=== PATIENT | female | born 1945 | race Hispanic/Latino ===

== ENCOUNTER 2017-01-02 14:19 | Outpatient (CLI) | payer MEDICARE ==
--- NOTE | 2017-01-02 15:29 | Mammography Report ---
Screening mammogram: Routine views are obtained demonstrating a generally fatty replaced breast pattern. In the inferior anterior left breast there is a sharply circumscribed noncalcified 6 mm nodule in in the lateral projection and may be an eccentric area of fat. The breast pattern is not otherwise remarkable. Patient is unaware of location of prior exams. CAD not captured. Impression: Probably benign left nodule. Recommendation: Repeat left mammogram in 6 months to confirm stability. BI-RADS CATEGORY: 3 = Probably benign ACR BI-RADS MAMMOGRAPHIC CODES: 0 = Needs additional imaging evaluation; 1 = Negative; 2 = Benign; 3 = Probably benign; 4 = Suspicious; 5 = Malignant; 6 = Known biopsy-proven malignancy COMMENT: 1. Dense breast tissue, i.e., adenosis, fibrocystic changes, etc., may obscure an underlying neoplasm. 2. Approximately 10% of cancers are not detected with mammography. 3. A negative mammography report should not delay biopsy if a clinically suspicious mass is present.
== END 2017-01-02 14:20 | disposition home or self-care (01) ==
LOC: MAMMO 14:19
PROVIDERS: ATTEND Internal Medicine
DX: Z12.31 Encounter for screening mammogram for malignant neoplasm of breast (principal)
CPT/HCPCS: 77067; G0202

== ENCOUNTER 2017-09-03 12:47 | Outpatient (CLI) | payer MEDICARE ==
--- NOTE | 2017-09-03 15:37 | Mammography Report ---
LEFT DIGITAL DIAGNOSTIC MAMMOGRAM with CAD: 09/03/17 12:47:00 CLINICAL: Follow-up low-density retroareolar asymmetry.. COMPARISON:01/02/17 FINDINGS: Lateral and spot magnification ML and CC views were performed. A low-density circumscribed asymmetry persists on the CC spot view but is not identified on the other views. Ultrasound of the retroareolar left breast was performed and demonstrated no mass or cystic correlate with the mammographic asymmetry. I suspect that it is a dilated duct which shows effacement on the lateral views. A subareolar 3 mm cyst at 10 o'clock has no mammographic correlate. IMPRESSION: No mammographic evidence of malignancy. BI-RADS CATEGORY: 2 -- Benign RECOMMENDATION: Return to routine mammographic screening. ACR BI-RADS MAMMOGRAPHIC CODES: 0 = Needs additional imaging evaluation; 1 = Negative; 2 = Benign; 3 = Probably benign; 4 = Suspicious; 5 = Malignant; 6 = Known biopsy-proven malignancy COMMENT: 1. Dense breast tissue, i.e., adenosis, fibrocystic changes, etc., may obscure an underlying neoplasm. 2. Approximately 10% of cancers are not detected with mammography. 3. A negative mammography report should not delay biopsy if a clinically suspicious mass is present. COMMENT: Patient follow-up letters are generated by our [employer] application.
--- NOTE | 2017-09-03 15:53 | Ultrasound Report ---
LEFT DIGITAL DIAGNOSTIC MAMMOGRAM with CAD and LEFT BREAST ULTRASOUND: 09/03/17 12:47:00 CLINICAL: Follow-up low-density retroareolar asymmetry.. COMPARISON:01/02/17 FINDINGS: Lateral and spot magnification ML and CC views were performed. A low-density circumscribed asymmetry persists on the CC spot view but is not identified on the other views. Ultrasound of the retroareolar left breast was performed and demonstrated no mass or cyst to correlate with the mammographic asymmetry. I suspect that it is a mildly dilated duct which shows effacement on the lateral views. A subareolar 3 mm cyst at 10 o'clock has no mammographic correlate. IMPRESSION: No mammographic evidence of malignancy. BI-RADS CATEGORY: 2 -- Benign RECOMMENDATION: Return to routine mammographic screening.
== END 2017-09-03 12:48 | disposition home or self-care (01) ==
LOC: MAMMO 12:47
PROVIDERS: ATTEND Internal Medicine
DX: N60.02 Solitary cyst of left breast (principal); N64.89 Other specified disorders of breast

== ENCOUNTER 2019-03-31 12:26 | Outpatient (CLI) | payer MEDICARE ==
--- NOTE | 2019-03-31 14:58 | Ultrasound Report ---
US soft tissue head and neck INDICATION: R22.1) MASS OF LATERAL NECK/. COMPARISON: None available. FINDINGS: In the region of patient reported pain and swelling, there appears to be thickening of the right ster nocleidomastoid muscle which may indicate torticollis. There is no discrete mass or abnormal adenopat hy. Signer Name: Brian Bhatt MD Signed: 03/31/2019 2:54 PM Workstation Name: [id number]
== END 2019-03-31 12:27 | disposition home or self-care (01) ==
LOC: US 12:26
DX: R22.1 Localized swelling, mass and lump, neck (principal); T81.49XA Infection following a procedure, other surgical site, initial encounter; I10 Essential (primary) hypertension
CPT/HCPCS: 76536

== ENCOUNTER 2019-06-23 12:44 | Outpatient (CLI) | payer MEDICARE ==
--- NOTE | 2019-06-23 15:57 | Mammography Report ---
DIGITAL SCREENING MAMMOGRAM WITH CAD, 06/23/2019 INDICATION: Routine screening mammography. TECHNIQUE: Digital bilateral 2D mammography was obtained in the craniocaudal and mediolateral obliq ue projections. This examination was interpreted with the benefit of Computer-Aided Detection analysi s. COMPARISON: 01/02/2017 FINDINGS: Breast Density: The breasts are almost entirely fatty. A left asymmetry with architectural distortion on the CC view requires additional imaging. No suspici ous calcifications of the left breast. There is no evidence of dominant mass, suspicious calcificatio ns or architectural distortion in the right breast. IMPRESSION: Left asymmetry and architectural distortion requiring additional imaging. Recommend recal l for left ML and spot magnification CC views and left breast ultrasound if needed. Follow up recommendation: Special View: Mag Category 0: Incomplete. Needs additional imaging evaluation and/or prior mammograms for comparison. A "normal" or negative report should not discourage follow up or biopsy of a clinically significant f inding. A written summary of these findings will be mailed to the patient. The patient will be entered into a mammography reporting system which will generate a reminder letter for the patient's next appointmen t at the appropriate interval. The [employer] recommends yearly mammograms starting at age 40 and continuing as l cielo as a woman is in good health. Breast MRI is recommended for women with an approximate 20-25% or greater lifetime risk of breast cancer, including women with a strong family history of breast or ova barbara cancer or who have been treated for Hodgkin's disease. Signer Name: Paul Poole MD Signed: 06/23/2019 3:52 PM Workstation Name: [id number]
== END 2019-06-23 12:45 | disposition home or self-care (01) ==
LOC: MAMMO 12:44
PROVIDERS: ATTEND Internal Medicine
DX: Z12.31 Encounter for screening mammogram for malignant neoplasm of breast (principal); N64.89 Other specified disorders of breast
CPT/HCPCS: 77067

== ENCOUNTER 2019-08-04 12:38 | Outpatient (CLI) | payer MEDICARE, OTHER ==
--- NOTE | 2019-08-04 13:18 | Mammography Report ---
DIGITAL DIAGNOSTIC MAMMOGRAM WITH CAD, 08/04/2019 INDICATION: ABNORMAL MAMMOGRAM TECHNIQUE: Digital left mammographic imaging was performed. This examination was interpreted with the benefit of Computer-aided Detection analysis. COMPARISON: 06/23/2019 FINDINGS: Breast Density: The breast is mostly fatty. ML and spot magnification CC views were performed and are negative. IMPRESSION: No mammographic evidence of malignancy. Follow up recommendation: Routine yearly BI-RADS Category 1: Negative. A "normal" or negative report should not discourage follow up or biopsy of a clinically significant f inding. A written summary of these findings will be mailed to the patient. The patient will be entered into a mammography reporting system which will generate a reminder letter for the patient's next appointmen t at the appropriate interval. According to the [employer], yearly mammograms are recommended starting at age 40 and continuing as long as a woman is in good health. Breast MRI is recommended for women with an stephanie roximately 20-25% or greater lifetime risk of breast cancer, including women with a strong family his tory of breast or ovarian cancer and women who have been treated for Hodgkin's disease. Signer Name: Paul Poole MD Signed: 08/04/2019 1:14 PM Workstation Name: [id number]
== END 2019-08-04 12:39 | disposition home or self-care (01) ==
LOC: MAMMO 12:38
PROVIDERS: ATTEND Internal Medicine
DX: R92.8 Other abnormal and inconclusive findings on diagnostic imaging of breast (principal)

== ENCOUNTER 2021-03-31 15:03 | Outpatient (CLI) | payer MEDICARE, OTHER ==
--- NOTE | 2021-03-31 15:24 | Fluoroscopy Report ---
Barium swallow Indication: DYSPHAGIA. Technique: Single and double contrast barium technique utilized to evaluate the esophagus. Findings: No mucosal irregularity, mass, mass effect, or critical stenosis. There were no abnormal tertiary c ontractions as seen with dysmotility. No gastroesophageal reflux. There is mild narrowing of the uppe r esophagus at the level of the cricopharyngeus. A barium tablet was given which freely passed distal ly into the stomach. 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 Fluoroscopic time: 0.7 minutes Number of fluoroscopic images: 26 Signer Name: Tal Henderson MD Signed: 03/31/2021 3:20 PM Workstation Name: [id number]
== END 2021-03-31 15:04 | disposition home or self-care (01) ==
LOC: FLUORO 15:03
PROVIDERS: ATTEND Otolaryngology Sleep Medicine
DX: R13.10 Dysphagia, unspecified (principal)
CPT/HCPCS: 74220

== ENCOUNTER 2021-04-12 13:51 | Outpatient (CLI) | payer MEDICARE, OTHER ==
[2021-04-12 15:06] LABS: Basophils # (Auto) 0.1 K/mm3 (0.0-0.1); Basophils % (Auto) 0.8 % (0.0-1.8); Eosinophils # (Auto) 0.2 K/mm3 (0.0-0.4); Hematocrit 41.1 % (30.3-42.9); Hemoglobin 13.5 gm/dl (10.1-14.3); Lymphocytes # (Auto) 2.2 K/mm3 (1.2-5.4); Lymphocytes % (Auto) 27.9 % (13.4-35.0); Mean Corpuscular HGB Conc 33 % (30-34); Mean Corpuscular Volume 90 fl (79-97); Monocytes # (Auto) 0.6 K/mm3 (0.0-0.8); Platelet Count 208 K/mm3 (140-440); Red Blood Count 4.59 M/mm3 (3.65-5.03); Red Cell Distribution Width 14.1 % (13.2-15.2)
[2021-04-12 15:30] LABS: Alanine Aminotransferase 20 units/L (7-56); Albumin 4.3 g/dL (3.9-5); BUN/Creatinine Ratio 25; Blood Urea Nitrogen 20 mg/dL (7-17); Calcium 10.1 mg/dL (8.4-10.2); Hemolysis Index 18
[2021-04-12 15:37] LABS: Erythrocyte Sedimentation Rate 6 mm/Hr (0-20)
== END 2021-04-12 13:52 | disposition home or self-care (01) ==
LOC: LAB 13:51
PROVIDERS: ATTEND Specialist
DX: G44.52 New daily persistent headache (NDPH) (principal)
CPT/HCPCS: 36415; 80053; 85025; 85652; 86140